=== PATIENT | female | born 1950 | race Caucasian/White ===

== ENCOUNTER 2021-01-13 06:41 | Day surgery (SDC) | payer OTHER ==
[~2021-01-13 06:41] MED LIST: CRESTOR10 MG PO; LEVOTHYROXINE25 MCG PO; VITAMIN D PO
== END 2021-01-13 19:00 | disposition home or self-care (01) ==
LOC: CIR.AMB 06:41
PROVIDERS: ATTEND Surgery
DX: C50.112 Malignant neoplasm of central portion of left female breast (principal); Z20.822 Contact with and (suspected) exposure to COVID-19